=== PATIENT | male | born 1955 ===

== ENCOUNTER 2016-07-20 10:12 | Day surgery (SDC) | payer MEDICARE ==
[2016-07-20 11:04] VITALS: BMI 40.6
[2016-07-20] MEDS ORDERED: Ciprofloxacin 400mg/200ml D5W 200 ML IVPB ONE (12:08)
[2016-07-20] MEDS ORDERED: Iohexol 240 (50 ml) ONE (12:08)
[2016-07-20] MEDS ORDERED: Lactated Ringer's 1,000 ML IV ONE (12:10)
[2016-07-20] MEDS ORDERED: Midazolam 2 MG/2 ML VIAL ONE (12:16)
[2016-07-20] MEDS ORDERED: Propofol 10 mg/ml Inj (20 ML) ONE ×2 (12:16→12:30)
[2016-07-20] MEDS ORDERED: HYDROmorphone 0.5 mg/0.5 ml ISec IVP PRN (12:32)
[2016-07-20] MEDS ORDERED: Phenylephrine 10 mg/ml Inj ONE (12:46)
[2016-07-20 14:38] VITALS: RESP 15; TEMP 97.4; O2SAT 98
[2016-07-20] MEDS ORDERED: Oxycodone/Acetaminophen 5/325 mg Tab PO PRN (14:39)
[2016-07-20] MEDS ORDERED: Oxycodone/Acetaminophen 5/325 mg Tab ONE (14:42)
[2016-07-20 16:19] VITALS: BP 123/69; PULSE 72
--- NOTE | 2016-07-23 14:28 | RAD ---
HISTORY: HEMATURIA COMPARISON: 07/13/2016 FINDINGS: BOWEL: Normal. No obstruction. No free air. BONES: Normal. OTHER FINDINGS: Interval placement of a left ureteral stent. IMPRESSION: Interval placement of a left ureteral stent.
--- NOTE | 2016-07-24 20:22 | OP ---
PROCEDURE DATE: 07/20/2016 this dictation was done before, but it did not come through. POSTOPERATIVE DIAGNOSES: Gross hematuria, question tumor of the left ureter. POSTOPERATIVE DIAGNOSES: Organized hematoma and collection of blood in the left ureter. A tumor was not seen. PROCEDURE: Cystoureteroscopy and biopsy of the tissue present in the upper ureter. ANESTHESIA: General. DESCRIPTION OF THE PROCEDURE: While the patient was in the lithotomy position, genitalia were preppe d and draped in a sterile fashion. A #21 scope was inserted into the bladder. The bladder was inspe cted. No evidence of any active bleeding. There is mild irritation around the left orifice from the stent. The stent was removed. A wire was inserted and retrograde revealed no defect like the previ ous time, but it still showed some abnormality. Urethroscopy done after removing the scope, engaging into the left ureter going up the lower ureter normal where the defect was. There is multiple large clots organized adherent to the wall of the ureter. This was biopsied and removed and sent for cyto logy and analysis. Again retrograde revealed the calyceal system normal and the upper ureter had no defect. My plan is to keep him without any stenting. I will follow him and do a CT scan with dye to evaluate any abnormality in the ureter. The scope was removed. The patient tolerated the procedure well and was transferred in stable condition. Emmanuel Baldwin MD cc: 43 TT: 07/24/2016 20:22:17 donna
--- NOTE | 2016-07-26 16:30 | RAD ---
Fluoroscopy dated 07/20/2016. History: Hematuria. Multiple fluoroscopic images of the abdomen during cystoscopy performed. Correlation made with prior CT scan 06/02/2016 and prior abdominal ultrasound 07/13/2016. Study demonstrates retrograde opacification of the proximal left ureter and collecting system. There does appear to be blunting of the visualized the calices. Please refer to operative report for additional details. Impression: Fluoroscopic guided cystoscopy. Please refer to operative report for additional details
== END 2016-07-20 15:25 | disposition home or self-care (01) ==
LOC: C.SDS 10:12
PROVIDERS: ATTEND Specialist
DX: R31.0 Gross hematuria (principal); N40.0 Benign prostatic hyperplasia without lower urinary tract symptoms; I10 Essential (primary) hypertension
CPT/HCPCS: 52354; 74000; 82948; 88307; C1769; J0744; J7120; Q9966

== ENCOUNTER 2016-08-04 03:59 | Inpatient (IN) | payer MEDICARE, OTHER ==
[2016-08-04 04:00] VITALS: BMI 40.6
--- NOTE | 2016-08-04 04:15 | C.PDOC ---
History Of Present Illness Patient presents to the emergency room with complaints of persistent hematuria and intermittently passing clots for the last few days. Patient had a urinary stent taken out by Dr. Baldwin on 07/25. Patient denies any fever, chills, nausea , vomiting, diarrhea, or any other complaints. Time Seen by Provider: 08/04/16 04:14 Chief Complaint (Nursing): Male Genitourinary History Per: Patient History/Exam Limitations: no limitations Onset/Duration Of Symptoms: Days, Intermittent Episodes (Passing clots), Persistent (Hematuria) Current Symptoms Are (Timing): Still Present Severity: Mild Associated Symptoms: Urinary Symptoms. denies: Fever, Chills, Nausea, Vomiting , Diarrhea Alleviating Factors: None Recent travel outside of the [place]: No Past Medical History Reviewed: Historical Data, Nursing Documentation, Vital Signs Vital Signs: Last Vital Signs Temp 97.8 F 08/04/16 04:10 Pulse 81 08/04/16 04:10 Resp 14 08/04/16 04:10 BP 112/85 08/04/16 04:10 Pulse Ox 99 08/04/16 06:21 - Medical History PMH: Arthritis, CHF (2005), Colonic Polyps, Diabetes, HTN, Hypercholesterolemia , Kidney Stones (1998), Chronic Kidney Disease, Sleep Apnea (CPAP at home), TIA (7 years ago) Surgical History: Endoscopy - [facility] Procedures LT HEART ANGIOCARDIOGRAM (07/20/13) RT/LEFT HEART CARD CATH (07/20/13) Family History: States: Unknown Family Hx - Social History Hx Tobacco Use: No Hx Alcohol Use: No - Immunization History Hx Tetanus Toxoid Vaccination: No Hx Influenza Vaccination: No Hx Pneumococcal Vaccination: No Review Of Systems Constitutional: Negative for: Fever, Chills Gastrointestinal: Negative for: Nausea, Vomiting, Diarrhea Genitourinary: Positive for: Hematuria, Other (Passing clots) Physical Exam - Physical Exam Appears: Non-toxic Skin: Warm, Dry, No Rash Gastrointestinal/Abdominal: Bowel Sounds (Tympanic to percussion), Soft, No Tenderness, Distention, No Guarding, No Rebound Back: Other (Right flank pain) Extremity: Normal ROM, No Tenderness Neurological/Psych: Oriented x3, Normal Speech ED Course And Treatment - Laboratory Results Result Diagrams: 08/04/16 04:55 08/04/16 04:55 O2 Sat by Pulse Oximetry: 99 Pulse Ox Interpretation: Normal Reevaluation Time: 06:15 Reassessment Condition: Improved Disposition Discussed With Dr.: Ricarda Vaughan Comment: accepted the pt on her service and took over the care at 6:28AM Doctor Will See Patient In The: Hospital Counseled Patient/Family Regarding: Studies Performed, Diagnosis, Need For Followup, Rx Given - Disposition Referrals: Emmanuel Baldwin MD [Staff Provider] - Disposition: HOSPITALIZED Disposition Time: 04:15 Condition: FAIR Prescriptions: oxyCODONE/Acetaminophen [Percocet 5/325 mg Tab] 1 tab PO QID PRN #12 tab PRN Reason: Pain Ondansetron ODT [Zofran ODT] 1 odt PO BID PRN #6 odt PRN Reason: Nausea/Vomiting - POA Present On Arrival: Poor Glycemic Control - Clinical Impression Clinical Impression: Hematuria, Abdominal pain, Renal insufficiency - Scribe Statement The provider has reviewed the documentation as recorded by the Shaji Garza Provider Scribe Attestation: All medical record entries made by the Chanelleibjosefa were at my direction and personally dictated by me. I have reviewed the chart and agree that the record accurately reflects my personal performance of the history, physical exam, medical decision making, and the department course for this patient. I have also personally directed, reviewed, and agree with the discharge instructions and disposition. Decision To Admit - Pt Status Changed To: Hospital Disposition Of: Inpatient - Admit Certification Admit to Inpatient:: After my assessment, the patient will require hospitalization for at least two midnights. This is because of the severity of symptoms shown, intensity of services needed, and/or the medical risk in this patient being treated as an outpatient. - InPatient: Physician Admission Certification: I certify that this patient requires 2 or more midnights of care for the following reason:: After my assessment, the patient will require hospitalization for at least two midnights. This is because of the severity of symptoms shown, intensity of services needed, and/or the medical risk in this patient being treated as an outpatient. - . Bed Request Type: Regular Admitting Physician: Ricarda Vaughan Patient Diagnosis: Hematuria, Abdominal pain, Renal insufficiency
[2016-08-04] MEDS ORDERED: Morphine 4 MG/ML VIAL IV ONE (04:45)
[2016-08-04] MEDS ORDERED: Sodium Chloride 0.9% 1,000 ML IV ONE (04:45)
[2016-08-04 04:58] LABS: BASO # 0.1 K/uL (0.0-0.2); BASO % 0.6 % (0.0-2.0); EOS # 0.2 K/uL (0.0-0.7); EOS % 1.5 % (0.0-4.0); HEMATOCRIT 38.1 % (35.0-51.0); LYMPH % 10.3 % (20.0-40.0); MEAN CELL VOLUME 88.1 fL (80.0-94.0); MEAN CORPUSCULAR HEMOGLOBIN 29.4 pg (27.0-31.0); MEAN CORPUSCULAR HGB CONC 33.4 g/dL (33.0-37.0); MEAN PLATELET VOLUME 8.2 fL (7.2-11.7); MONO # 0.7 K/uL (0.0-0.8); MONO % 6.8 % (0.0-10.0); RED CELL DISTRIBUTION WIDTH 13.3 % (11.5-14.5); WHITE BLOOD COUNT 10.2 K/uL (4.8-10.8)
[2016-08-04] MEDS ORDERED: Morphine 4 MG/ML VIAL ONE (04:59)
[2016-08-04 05:21] LABS: RBC URINE 3653 /hpf (0-3); URINE BACTERIA RARE (<OCC); URINE BILIRUBIN NEGATIVE (NEGATIVE); URINE BLOOD 3+ (NEGATIVE); URINE COLOR Amber (YELLOW); URINE GLUCOSE (UA) NORMAL (Normal); URINE KETONE NEGATIVE (NEGATIVE); URINE LEUKOCYTE ESTERASE NEG Leu/uL (Negative); URINE PROTEIN 2+ mg/dL (NEGATIVE); URINE UROBILINOGEN NORMAL mg/dL (0.2-1.0); WBC URINE 4 /hpf (0-5)
[2016-08-04 05:26] LABS: POTASSIUM 4.7 mmol/L (3.6-5.2)
[2016-08-04 06:57] VITALS: RESP 20
[2016-08-04] MEDS ORDERED: Sodium Chloride 0.9% 1,000 ML IV SCH (08:00)
[2016-08-04] MEDS: Magnesium Hydroxide Susp 30 ml UD PO SCH (10:03)
[2016-08-04] MEDS: Sodium Chloride 0.9% 1,000 ML IV SCH (10:04)
[2016-08-04] MEDS: Albuterol-Ipratrop 3 mg / 0.5 (3 ml) UD INH SCH ×2 (13:45→19:33)
--- NOTE | 2016-08-04 15:59 | CP.PCM.CON ---
History of Present Illness - History of Present Illness History of Present Illness: CC: Hematuria HPI: 61 year old man with the following chronic medical conditions 1. Coronary artery disease - chronic and stable 2. HTN chronic and stable 3. Diasotlic CHF - chronic and stable Presents to [facility] with worsening hematuria. Review of Systems - Review of Systems All systems: reviewed and no additional remarkable complaints except Past Patient History - Past Medical History & Family History Past Medical History?: Yes - Past Social History Smoking Status: Never Smoked - CARDIAC Hx Congestive Heart Failure: Yes (2005) Hx Hypercholesterolemia: Yes Hx Hypertension: Yes - PULMONARY Hx Sleep Apnea: Yes (CPAP at home) - NEUROLOGICAL Hx Transient Ischemic Attacks (TIA): Yes (7 years ago) - HEENT Hx HEENT Problems: No - RENAL Hx Chronic Kidney Disease: Yes Hx Kidney Stones: Yes (1998) - ENDOCRINE/METABOLIC Hx Endocrine Disorders: Yes Hx Diabetes Mellitus Type 2: Yes - HEMATOLOGICAL/ONCOLOGICAL Hx Blood Disorders: No - INTEGUMENTARY Hx Dermatological Problems: No - MUSCULOSKELETAL/RHEUMATOLOGICAL Hx Arthritis: Yes Hx Falls: No - GASTROINTESTINAL Hx Gastrointestinal Disorders: Yes Hx Gastroesophageal Reflux: Yes - GENITOURINARY/GYNECOLOGICAL Hx Genitourinary Disorders: Yes Hx Hematuria: Yes - PSYCHIATRIC Hx Psychophysiologic Disorder: No Hx Substance Use: No - SURGICAL HISTORY Hx Surgeries: Yes Hx Arthroscopy: Yes (Right knee) Hx Cardiac Catheterization: Yes (2 yrs. ago) Other/Comment: Cyst removed from left hand 1981 - ANESTHESIA Hx Anesthesia: Yes Hx Anesthesia Reactions: Yes (DIFFICULT TO AROUSE NUMBNESS OF RIGHT SIDE BUT WAS DISCHARGED SAME DAY) Hx Malignant Hyperthermia: No Meds Home Medications: Home Medication List Medication Instructions Recorded Confirmed Type Ondansetron ODT [Zofran ODT] 1 odt PO BID PRN #6 odt 08/04/16 Rx oxyCODONE/Acetaminophen [Percocet 1 tab PO QID PRN #12 tab 08/04/16 Rx 5/325 mg Tab] Allergies/Adverse Reactions: Allergies Allergy/AdvReac Type Severity Reaction Status Date / Time ragweed pollen Allergy CONGESTION Verified 08/04/16 04:13 - Medications Medications: Current Medications Albuterol/Ipratropium (Duoneb 3 Mg/0.5 Mg (3 Ml) Ud) 3 ml INH RQ6 [facility] Last Admin: 08/04/16 13:45 Dose: 3 ml Amlodipine Besylate (Norvasc) 5 mg PO DAILY [facility] Last Admin: 08/04/16 10:03 Dose: 5 mg Sodium Chloride (Sodium Chloride 0.9%) 1,000 mls @ 50 mls/hr IV .Q20H [facility] Last Admin: 08/04/16 10:04 Dose: 50 mls/hr Losartan Potassium (Cozaar) 50 mg PO DAILY [facility] Last Admin: 08/04/16 10:03 Dose: 50 mg Magnesium Hydroxide (Milk Of Magnesia) 30 ml PO DAILY [facility] Last Admin: 08/04/16 10:03 Dose: 30 ml Morphine Sulfate (Morphine) 2 mg IVP Q6 PRN PRN Reason: Pain, moderate (4-7) Last Admin: 08/04/16 09:59 Dose: 2 mg Pantoprazole Sodium (Protonix Inj) 40 mg IVP DAILY [facility] Last Admin: 08/04/16 10:04 Dose: 40 mg Rosuvastatin Calcium (Crestor) 10 mg PO [facility] Physical Exam - Constitutional Appears: Well, Non-toxic - Head Exam Head Exam: ATRAUMATIC, NORMAL INSPECTION - Eye Exam Eye Exam: absent: Scleral icterus Pupil Exam: PERRL - ENT Exam ENT Exam: Mucous Membranes Moist, Normal Exam - Respiratory Exam Respiratory Exam: Clear to Auscultation Bilateral, NORMAL BREATHING PATTERN - Cardiovascular Exam Cardiovascular Exam: REGULAR RHYTHM, RRR, +S1, +S2, +S4. absent: JVD - GI/Abdominal Exam GI & Abdominal Exam: Normal Bowel Sounds. absent: Organomegaly - Neurological Exam Neurological exam: CN II-XII Intact, Oriented x3 - Psychiatric Exam Psychiatric exam: Normal Affect, Normal Mood Results - Vital Signs Recent Vital Signs: Last Vital Signs Temp 97.7 F 08/04/16 07:56 Pulse 71 08/04/16 13:48 Resp 20 08/04/16 13:10 BP 139/79 08/04/16 07:56 Pulse Ox 98 08/04/16 07:56 - Labs Result Diagrams: 08/05/16 07:01 08/05/16 07:01 Labs: Laboratory Results - last 24 hr 08/04/16 11:34 POC Glucose (mg/dL) 139 H Assessment & Plan - Assessment and Plan (Free Text) Assessment: 61 year old man well know to me Hematuria s/p cystoscopy and nephrolithiasis IVF and morphine HTN is chronic and stable CAD is chronic and stable on statin, he off anti platelets while issue is active dyslipidemia - chronic and stable on simvastatin He can follow up in my office in 2-4 weeks after his issue has stabilized.
--- NOTE | 2016-08-04 16:58 | CP.PCM.HP ---
History of Present Illness - History of Present Illness History of Present Illness: hematuria passing blood clots has abd pain Present on Admission - Present on Admission Any Indicators Present on Admission: No Review of Systems - Review of Systems Systems not reviewed;Unavailable: Acuity of Condition - Constitutional Constitutional: Daytime Sleepiness, Weakness - EENT Eyes: As Per HPI Ears: As Per HPI Nose/Mouth/Throat: As Per HPI - Cardiovascular Cardiovascular: Claudication, Dyspnea on Exertion - Respiratory Respiratory: Dyspnea on Exertion, Wheezing, Chest Congestion - Gastrointestinal Gastrointestinal: Bloating, Cramping - Genitourinary Genitourinary: Flank Pain, Hematuria - Reproductive: Male Reproductive:Male: As Per HPI - Musculoskeletal Musculoskeletal: As Per HPI - Integumentary Integumentary: As Per HPI - Neurological Neurological: As Per HPI - Psychiatric Psychiatric: As Per HPI - Endocrine Endocrine: As Per HPI - Hematologic/Lymphatic Hematologic: As Per HPI Past Patient History - Past Medical History & Family History Past Medical History?: Yes - Past Social History Smoking Status: Never Smoked - CARDIAC Hx Congestive Heart Failure: Yes (2005) Hx Hypercholesterolemia: Yes Hx Hypertension: Yes - PULMONARY Hx Sleep Apnea: Yes (CPAP at home) - NEUROLOGICAL Hx Transient Ischemic Attacks (TIA): Yes (7 years ago) - HEENT Hx HEENT Problems: No - RENAL Hx Chronic Kidney Disease: Yes Hx Kidney Stones: Yes (1998) - ENDOCRINE/METABOLIC Hx Endocrine Disorders: Yes Hx Diabetes Mellitus Type 2: Yes - HEMATOLOGICAL/ONCOLOGICAL Hx Blood Disorders: No - INTEGUMENTARY Hx Dermatological Problems: No - MUSCULOSKELETAL/RHEUMATOLOGICAL Hx Arthritis: Yes Hx Falls: No - GASTROINTESTINAL Hx Gastrointestinal Disorders: Yes Hx Gastroesophageal Reflux: Yes - GENITOURINARY/GYNECOLOGICAL Hx Genitourinary Disorders: Yes Hx Hematuria: Yes - PSYCHIATRIC Hx Psychophysiologic Disorder: No Hx Substance Use: No - SURGICAL HISTORY Hx Surgeries: Yes Hx Arthroscopy: Yes (Right knee) Hx Cardiac Catheterization: Yes (2 yrs. ago) Other/Comment: Cyst removed from left hand 1981 - ANESTHESIA Hx Anesthesia: Yes Hx Anesthesia Reactions: Yes (DIFFICULT TO AROUSE NUMBNESS OF RIGHT SIDE BUT WAS DISCHARGED SAME DAY) Hx Malignant Hyperthermia: No Meds Home Medications: Home Medication List Medication Instructions Recorded Confirmed Type Ondansetron ODT [Zofran ODT] 1 odt PO BID PRN #6 odt 08/04/16 Rx oxyCODONE/Acetaminophen [Percocet 1 tab PO QID PRN #12 tab 08/04/16 Rx 5/325 mg Tab] Allergies/Adverse Reactions: Allergies Allergy/AdvReac Type Severity Reaction Status Date / Time ragweed pollen Allergy CONGESTION Verified 08/04/16 04:13 Physical Exam - Constitutional Appears: Non-toxic, In Acute Distress - Head Exam Head Exam: NORMAL INSPECTION - Eye Exam Eye Exam: Normal appearance Pupil Exam: NORMAL ACCOMODATION - ENT Exam ENT Exam: Normal Exam - Neck Exam Neck exam: Positive for: Full Rom - Respiratory Exam Respiratory Exam: Decreased Breath Sounds - Cardiovascular Exam Cardiovascular Exam: REGULAR RHYTHM - GI/Abdominal Exam GI & Abdominal Exam: Tenderness - Rectal Exam Rectal Exam: NORMAL INSPECTION - Extremities Exam Extremities exam: Positive for: normal inspection - Back Exam Back exam: NORMAL INSPECTION - Neurological Exam Neurological exam: Oriented x3 - Psychiatric Exam Psychiatric exam: Flat Affect - Skin Skin Exam: Normal Color Results - Vital Signs Recent Vital Signs: Last Vital Signs Temp 97.7 F 08/04/16 07:56 Pulse 71 08/04/16 13:48 Resp 20 08/04/16 13:10 BP 139/79 08/04/16 07:56 Pulse Ox 98 08/04/16 07:56 - Labs Result Diagrams: 08/04/16 04:55 08/04/16 04:55 Labs: Laboratory Results - last 24 hr 08/04/16 11:34 POC Glucose (mg/dL) 139 H Assessment & Plan - Assessment and Plan (Free Text) Assessment: ac abdominal pain hematurea renal mass s/p cystoscopy Plan: mom urology cons ult pain managment - Date & Time Date: 08/04/16 Time: 17:03
[2016-08-04] MEDS ORDERED: Magnesium Hydroxide Susp 30 ml UD PO ONE (17:15)
[2016-08-05] MEDS: Albuterol-Ipratrop 3 mg / 0.5 (3 ml) UD INH SCH ×4 (01:05→19:26)
[2016-08-05] MEDS: Sodium Chloride 0.9% 1,000 ML IV SCH (05:40)
[2016-08-05 07:13] LABS: BASO % 0.7 % (0.0-2.0); EOS # 0.2 K/uL (0.0-0.7); EOS % 3.4 % (0.0-4.0); HEMATOCRIT 38.3 % (35.0-51.0); LYMPH # 1.1 K/uL (1.0-4.3); LYMPH % 15.8 % (20.0-40.0); MEAN CELL VOLUME 88.6 fL (80.0-94.0); MEAN CORPUSCULAR HEMOGLOBIN 29.4 pg (27.0-31.0); MEAN CORPUSCULAR HGB CONC 33.2 g/dL (33.0-37.0); MEAN PLATELET VOLUME 8.3 fL (7.2-11.7); MONO # 0.7 K/uL (0.0-0.8); RED CELL DISTRIBUTION WIDTH 13.9 % (11.5-14.5); WHITE BLOOD COUNT 7.1 K/uL (4.8-10.8)
[2016-08-05 07:26] LABS: INR 1.1
[2016-08-05 07:28] LABS: POTASSIUM 4.4 mmol/L (3.6-5.2)
[2016-08-05 07:30] LABS: ALB/GLOB RATIO 1.1 (1.0-2.1); BILIRUBIN,TOTAL 0.7 mg/dL (0.2-1.3); TOTAL PROTEIN 7.1 g/dL (6.3-8.3)
[2016-08-05] MEDS: Magnesium Hydroxide Susp 30 ml UD PO SCH (10:52)
--- NOTE | 2016-08-05 11:08 | CP.PCM.PN ---
Subjective - Date & Time of Evaluation Date of Evaluation: 08/05/16 Time of Evaluation: 11:05 - Subjective Subjective: less abd pain still passing blood clots pain and redness aknle maleolus Objective - Vital Signs/Intake and Output Vital Signs (last 24 hours): Temp Pulse Resp BP Pulse Ox 98.9 F 74 20 96/54 L 98 08/05/16 08:00 08/05/16 08:00 08/05/16 08:00 08/05/16 08:00 08/05/16 08:00 Intake and Output: 08/05/16 08/05/16 06:59 18:59 Intake Total 1440 Balance 1440 - Medications Medications: Current Medications Albuterol/Ipratropium (Duoneb 3 Mg/0.5 Mg (3 Ml) Ud) 3 ml INH RQ6 [facility] Last Admin: 08/05/16 08:07 Dose: 3 ml Amlodipine Besylate (Norvasc) 5 mg PO DAILY [facility] Last Admin: 08/05/16 10:52 Dose: 5 mg Sodium Chloride (Sodium Chloride 0.9%) 1,000 mls @ 50 mls/hr IV .Q20H [facility] Last Admin: 08/05/16 05:40 Dose: 50 mls/hr Losartan Potassium (Cozaar) 50 mg PO DAILY [facility] Last Admin: 08/05/16 10:52 Dose: 50 mg Magnesium Hydroxide (Milk Of Magnesia) 30 ml PO DAILY [facility] Last Admin: 08/05/16 10:52 Dose: 30 ml Morphine Sulfate (Morphine) 2 mg IVP Q6 PRN PRN Reason: Pain, moderate (4-7) Last Admin: 08/04/16 22:41 Dose: 2 mg Pantoprazole Sodium (Protonix Inj) 40 mg IVP DAILY [facility] Last Admin: 08/05/16 10:52 Dose: 40 mg Rosuvastatin Calcium (Crestor) 10 mg PO HS [facility] Last Admin: 08/04/16 21:41 Dose: 10 mg - Labs Labs: 08/05/16 07:01 08/05/16 07:01 PT 12.9 SECONDS (9.7-12.2) H 08/05/16 07:01 INR 1.1 08/05/16 07:01 - Constitutional Appears: Non-toxic - Head Exam Head Exam: NORMAL INSPECTION - Eye Exam Eye Exam: Normal appearance Pupil Exam: NORMAL ACCOMODATION - ENT Exam ENT Exam: Normal Exam - Neck Exam Neck Exam: Normal Inspection - Respiratory Exam Respiratory Exam: Decreased Breath Sounds - Cardiovascular Exam Cardiovascular Exam: REGULAR RHYTHM - GI/Abdominal Exam GI & Abdominal Exam: Tenderness, Normal Bowel Sounds - Rectal Exam Rectal Exam: NORMAL INSPECTION - Exam Exam: NORMAL INSPECTION - Extremities Exam Extremities Exam: Normal Inspection - Back Exam Back Exam: NORMAL INSPECTION - Neurological Exam Neurological Exam: Oriented x3 - Psychiatric Exam Psychiatric exam: Normal Affect - Skin Skin Exam: Normal Color, Rash Assessment and Plan - Assessment and Plan (Free Text) Assessment: kidney tumer hematuria persistant ac ankle pain and celulitis Plan: as per orders
[2016-08-06] MEDS: Sodium Chloride 0.9% 1,000 ML IV SCH ×2 (00:33→22:35)
[2016-08-06] MEDS: Albuterol-Ipratrop 3 mg / 0.5 (3 ml) UD INH SCH ×3 (08:18→19:44)
[2016-08-06] MEDS: Magnesium Hydroxide Susp 30 ml UD PO SCH (09:31)
[2016-08-06] MEDS ORDERED: Bisacodyl 5mg EC Tab PO ONE (12:09)
--- NOTE | 2016-08-06 16:56 | CP.PCM.PN ---
Subjective - Date & Time of Evaluation Date of Evaluation: 08/06/16 Time of Evaluation: 16:53 - Subjective Subjective: less urinary bleeding less abd pain r i Objective - Vital Signs/Intake and Output Vital Signs (last 24 hours): Temp Pulse Resp BP Pulse Ox 98.1 F 77 20 145/78 97 08/06/16 00:00 08/06/16 08:00 08/06/16 00:00 08/06/16 00:00 08/06/16 00:00 Intake and Output: 08/06/16 08/06/16 06:59 18:59 Intake Total 800 850 Balance 800 850 - Medications Medications: Current Medications Albuterol/Ipratropium (Duoneb 3 Mg/0.5 Mg (3 Ml) Ud) 3 ml INH RQ6 [facility] Last Admin: 08/06/16 14:21 Dose: 3 ml Amlodipine Besylate (Norvasc) 5 mg PO DAILY [facility] Last Admin: 08/06/16 09:30 Dose: 5 mg Sodium Chloride (Sodium Chloride 0.9%) 1,000 mls @ 50 mls/hr IV .Q20H [facility] Last Admin: 08/06/16 00:33 Dose: 50 mls/hr Losartan Potassium (Cozaar) 50 mg PO DAILY [facility] Last Admin: 08/06/16 09:30 Dose: 50 mg Magnesium Hydroxide (Milk Of Magnesia) 30 ml PO DAILY [facility] Last Admin: 08/06/16 09:31 Dose: Not Given Morphine Sulfate (Morphine) 2 mg IVP Q6 PRN PRN Reason: Pain, moderate (4-7) Last Admin: 08/04/16 22:41 Dose: 2 mg Pantoprazole Sodium (Protonix Inj) 40 mg IVP DAILY [facility] Last Admin: 08/06/16 09:30 Dose: 40 mg Pneumococcal Polyvalent Vaccine (Pneumovax 23 Vaccine) 0.5 ml IM .ONCE ONE Stop: 08/07/16 10:01 Rosuvastatin Calcium (Crestor) 10 mg PO HS [facility] Last Admin: 08/05/16 22:00 Dose: 10 mg - Labs Labs: 08/05/16 07:01 08/05/16 07:01 PT 12.9 SECONDS (9.7-12.2) H 08/05/16 07:01 INR 1.1 08/05/16 07:01 - Constitutional Appears: No Acute Distress - Head Exam Head Exam: NORMAL INSPECTION - Eye Exam Eye Exam: Normal appearance Pupil Exam: NORMAL ACCOMODATION - ENT Exam ENT Exam: Mucous Membranes Moist - Neck Exam Neck Exam: Normal Inspection - Respiratory Exam Respiratory Exam: NORMAL BREATHING PATTERN - Cardiovascular Exam Cardiovascular Exam: REGULAR RHYTHM - GI/Abdominal Exam GI & Abdominal Exam: Hyperactive Bowel Sounds - Rectal Exam Rectal Exam: NORMAL INSPECTION - Exam Exam: NORMAL INSPECTION - Extremities Exam Extremities Exam: Normal Inspection - Back Exam Back Exam: NORMAL INSPECTION - Neurological Exam Neurological Exam: Oriented x3 - Psychiatric Exam Psychiatric exam: Normal Affect - Skin Skin Exam: Normal Color Assessment and Plan - Assessment and Plan (Free Text) Assessment: heaturia sec to leasion ureter discused with dr gilmore need mri with contrast has creatini hi will cont iv fluids and repeate lab in am Plan: as per orders
[2016-08-07] MEDS: Albuterol-Ipratrop 3 mg / 0.5 (3 ml) UD INH SCH ×5 (02:07→19:37)
[2016-08-07 07:19] LABS: POTASSIUM 4.7 mmol/L (3.6-5.2)
[2016-08-07 07:21] LABS: BILIRUBIN,TOTAL 0.6 mg/dL (0.2-1.3)
[2016-08-07 07:22] LABS: ALB/GLOB RATIO 1.1 (1.0-2.1); CALCIUM 9.2 mg/dl (8.6-10.4); TOTAL PROTEIN 7.6 g/dL (6.3-8.3)
[2016-08-07] MEDS ORDERED: Sodium Chloride 0.45% 500ml 500 ML SOL IV ONE (10:00)
[2016-08-07] MEDS ORDERED: Pneumococcal 23-Valent Vaccine IM ONE (10:00)
--- NOTE | 2016-08-07 10:00 | CP.PCM.PN ---
Subjective - Date & Time of Evaluation Date of Evaluation: 08/07/16 Time of Evaluation: 09:57 - Subjective Subjective: feels beter no pain creatinin improved urin more cleare Objective - Vital Signs/Intake and Output Vital Signs (last 24 hours): Temp Pulse Resp BP Pulse Ox 98.3 F 92 H 20 148/85 97 08/07/16 07:00 08/07/16 07:00 08/07/16 07:00 08/07/16 07:00 08/07/16 07:00 Intake and Output: 08/07/16 08/07/16 06:59 18:59 Intake Total 1350 Output Total 900 Balance 450 - Medications Medications: Current Medications Albuterol/Ipratropium (Duoneb 3 Mg/0.5 Mg (3 Ml) Ud) 3 ml INH RQ6 [facility] Last Admin: 08/07/16 08:13 Dose: 3 ml Amlodipine Besylate (Norvasc) 5 mg PO DAILY [facility] Last Admin: 08/06/16 09:30 Dose: 5 mg Sodium Chloride (Sodium Chloride 0.9%) 1,000 mls @ 50 mls/hr IV .Q20H [facility] Last Admin: 08/06/16 22:35 Dose: 50 mls/hr Losartan Potassium (Cozaar) 50 mg PO DAILY [facility] Last Admin: 08/06/16 09:30 Dose: 50 mg Magnesium Hydroxide (Milk Of Magnesia) 30 ml PO DAILY [facility] Last Admin: 08/06/16 09:31 Dose: Not Given Morphine Sulfate (Morphine) 2 mg IVP Q6 PRN PRN Reason: Pain, moderate (4-7) Last Admin: 08/04/16 22:41 Dose: 2 mg Pantoprazole Sodium (Protonix Inj) 40 mg IVP DAILY [facility] Last Admin: 08/06/16 09:30 Dose: 40 mg Pneumococcal Polyvalent Vaccine (Pneumovax 23 Vaccine) 0.5 ml IM .ONCE ONE Stop: 08/07/16 10:01 Rosuvastatin Calcium (Crestor) 10 mg PO HS [facility] Last Admin: 08/06/16 21:11 Dose: 10 mg Sodium Chloride (Sodium Chloride 0.45%) 500 ml IV STAT ONE Stop: 08/07/16 10:01 - Labs Labs: 08/05/16 07:01 08/07/16 07:00 PT 12.9 SECONDS (9.7-12.2) H 08/05/16 07:01 INR 1.1 08/05/16 07:01 - Constitutional Appears: Non-toxic - Head Exam Head Exam: NORMAL INSPECTION - Eye Exam Eye Exam: Normal appearance Pupil Exam: NORMAL ACCOMODATION - Back Exam Back Exam: NORMAL INSPECTION - Neurological Exam Neurological Exam: Normal Gait, Oriented x3 - Psychiatric Exam Psychiatric exam: Normal Affect - Skin Skin Exam: Normal Color Assessment and Plan - Assessment and Plan (Free Text) Assessment: urtral tumer kidney mass hematuria Plan: cont iv ct
[2016-08-07] MEDS: Magnesium Hydroxide Susp 30 ml UD PO SCH (10:58)
[2016-08-07] MEDS ORDERED: Iodixanol 320 MG/ML 100 ML BOTTLE IV ONE (12:33)
[2016-08-07] MEDS: Sodium Chloride 0.9% 1,000 ML IV SCH ×2 (16:15→20:20)
--- NOTE | 2016-08-07 16:35 | CT ---
PROCEDURE: CT Chest, Abdomen and Pelvis with intravenous contrast HISTORY: uretral tumer COMPARISON: Comparison is made to the previous study dated 08/03/2016 and study dated 05/23/2015 TECHNIQUE: Axial and reformatted coronal and sagittal CT images of the chest abdomen and pelvis were obtained before and after IV contrast administration. IV dose administered: 50 mL of Visipaque 320 Radiation dose: Total exam DLP = 4273. 7 mGy-cm. This CT exam was performed using one or more of the following dose reduction techniques: Automated exposure control, adjustment of the mA and/or kV according to patient size, and/or use of iterative reconstruction technique. FINDINGS: CT CHEST WITH CONTRAST: LUNGS: There is 5 millimeter nodule at the right lung upper lobe. There are small reticulonodular opacities at the peripheral portion of the right middle and lower lobe of uncertain etiology. Findings could be due to mild infection or inflammatory process. Otherwise MEDIASTINUM: Unremarkable. Normal caliber aorta and pulmonary arterial trunk. No aortic dissection. Normal size heart. LYMPH NODES: Unremarkable. PLEURA: Unremarkable. No pneumothorax. No pleural fluid. BONES: Unremarkable. OTHER FINDINGS: None. CT ABDOMEN AND PELVIS: LIVER: Unremarkable. No gross lesion or ductal dilatation. GALLBLADDER AND BILE DUCTS: Unremarkable. PANCREAS: Unremarkable. No gross lesion or ductal dilatation. SPLEEN: Unremarkable. ADRENALS: Unremarkable. No mass. KIDNEYS AND URETERS: The left kidney at these larger than the right. There is filling defect seen at the left kidney lower pole collecting system. There is also enhancing nodule at the midpole collecting system/ renal pelvis. There is moderate wall thickening of the collecting system and proximal ureter of the left kidney. The collecting system of the lower pole of the left kidney is not well visualized. The calyces in the upper pole of the left kidney appear intact and normal shape. No evidence of right renal calculi or hydronephrosis. There is a calcified wall lesion at the mid to lower pole right kidney measures 3 centimeter. The distal portion of both ureters are not dilated. Moderate left perinephric stranding is again noted. VASCULATURE: Unremarkable. No aortic aneurysm. BOWEL: Unremarkable. No obstruction. No gross mural thickening. APPENDIX: Normal appendix. PERITONEUM: Unremarkable. No free fluid. No free air. LYMPH NODES: Unremarkable. No enlarged lymph nodes. BLADDER: [id number] urinary bladder wall thickening is noted. REPRODUCTIVE: The prostate is mildly enlarged. BONES: No acute fracture. OTHER FINDINGS: None. IMPRESSION: The collecting system/ calyces of the left kidney lower pole is not visualized. The calyces of the left kidney upper pole are normal in shape. Suspicious for mass lesion in the collecting system of the left kidney lower pole. Suspicious for enhancing soft tissue nodule at the left renal pelvis. Moderate wall thickening of the left renal pelvis and proximal left ureter. The left kidney is larger than the right. Moderate left perinephric stranding seen. Mildly enlarged lymph nodes adjacent to the left kidney and in the left para-aortic region. 5 millimeter nodule at the right lung upper lobe. Nonspecific small reticular nodular opacities at the peripheral right mid to lower lobe may be due to mild infectious process. Stable calcified wall cystic lesion at the midpole right kidney since the previous study dated 05/23/2015.
[2016-08-08] MEDS: Albuterol-Ipratrop 3 mg / 0.5 (3 ml) UD INH SCH ×4 (02:23→20:29)
[2016-08-08 06:03] LABS: BASO # 0.1 K/uL (0.0-0.2); BASO % 0.6 % (0.0-2.0); EOS # 0.3 K/uL (0.0-0.7); EOS % 3.6 % (0.0-4.0); HEMATOCRIT 38.9 % (35.0-51.0); LYMPH # 1.1 K/uL (1.0-4.3); LYMPH % 12.4 % (20.0-40.0); MEAN CELL VOLUME 88.4 fL (80.0-94.0); MEAN CORPUSCULAR HEMOGLOBIN 29.4 pg (27.0-31.0); MEAN CORPUSCULAR HGB CONC 33.3 g/dL (33.0-37.0); MEAN PLATELET VOLUME 8.2 fL (7.2-11.7); MONO # 0.9 K/uL (0.0-0.8); MONO % 10.2 % (0.0-10.0); RED CELL DISTRIBUTION WIDTH 13.4 % (11.5-14.5); WHITE BLOOD COUNT 8.5 K/uL (4.8-10.8)
[2016-08-08 06:14] LABS: POTASSIUM 4.8 mmol/L (3.6-5.2)
[2016-08-08 06:18] LABS: CALCIUM 8.7 mg/dl (8.6-10.4)
[2016-08-08] MEDS: Magnesium Hydroxide Susp 30 ml UD PO SCH (10:20)
[2016-08-08] MEDS ORDERED: Naproxen 550 mg Tab PO PRN (11:15)
[2016-08-08] MEDS ORDERED: MethylPREDNISolone Depo 40 mg/ml Inj IM ONE (11:42)
[2016-08-08] MEDS ORDERED: Bupivacaine HCl 0.5% PF (30 ml) Inj IJ ONE (11:43)
[2016-08-08] MEDS: Sodium Chloride 0.9% 1,000 ML IV SCH ×2 (13:42→21:23)
--- NOTE | 2016-08-08 14:02 | CP.PCM.PN ---
Subjective - Date & Time of Evaluation Date of Evaluation: 08/08/16 Time of Evaluation: 14:00 - Subjective Subjective: pain sewling ankle seen by dr saavedra had injection Objective - Vital Signs/Intake and Output Vital Signs (last 24 hours): Temp Pulse Resp BP Pulse Ox 97.7 F 90 20 147/90 99 08/08/16 08:15 08/08/16 08:41 08/08/16 08:15 08/08/16 08:15 08/08/16 08:15 Intake and Output: 08/08/16 08/08/16 06:59 18:59 Intake Total 640 500 Output Total 500 Balance 640 0 - Medications Medications: Current Medications Albuterol/Ipratropium (Duoneb 3 Mg/0.5 Mg (3 Ml) Ud) 3 ml INH RQ6 [facility] Last Admin: 08/08/16 13:25 Dose: 3 ml Amlodipine Besylate (Norvasc) 5 mg PO DAILY [facility] Last Admin: 08/08/16 10:19 Dose: 5 mg Sodium Chloride (Sodium Chloride 0.9%) 1,000 mls @ 50 mls/hr IV .Q20H [facility] Last Admin: 08/08/16 13:42 Dose: 50 mls/hr Losartan Potassium (Cozaar) 50 mg PO DAILY [facility] Last Admin: 08/08/16 10:19 Dose: 50 mg Magnesium Hydroxide (Milk Of Magnesia) 30 ml PO DAILY [facility] Last Admin: 08/08/16 10:20 Dose: Not Given Morphine Sulfate (Morphine) 2 mg IVP Q6 PRN PRN Reason: Pain, moderate (4-7) Last Admin: 08/08/16 03:36 Dose: 2 mg Pantoprazole Sodium (Protonix Inj) 40 mg IVP DAILY [facility] Last Admin: 08/08/16 10:20 Dose: 40 mg Rosuvastatin Calcium (Crestor) 10 mg PO HS [facility] Last Admin: 08/07/16 22:00 Dose: 10 mg - Labs Labs: 08/08/16 05:53 08/08/16 05:53 PT 12.9 SECONDS (9.7-12.2) H 08/05/16 07:01 INR 1.1 08/05/16 07:01 - Constitutional Appears: Non-toxic - Head Exam Head Exam: NORMAL INSPECTION - Eye Exam Eye Exam: Periorbital tenderness Pupil Exam: NORMAL ACCOMODATION - ENT Exam ENT Exam: Mucous Membranes Moist - Neck Exam Neck Exam: Normal Inspection - Respiratory Exam Respiratory Exam: Clear to Ausculation Bilateral - Cardiovascular Exam Cardiovascular Exam: REGULAR RHYTHM - GI/Abdominal Exam GI & Abdominal Exam: Normal Bowel Sounds - Rectal Exam Rectal Exam: NORMAL INSPECTION - Exam Exam: NORMAL INSPECTION External exam: NORMAL EXTERNAL EXAM - Extremities Exam Extremities Exam: Normal Inspection - Back Exam Back Exam: NORMAL INSPECTION - Neurological Exam Neurological Exam: Normal Gait - Psychiatric Exam Psychiatric exam: Normal Mood Assessment and Plan - Assessment and Plan (Free Text) Assessment: mass in kidney will have bx tomoro Plan: npo after mid night
[2016-08-08] MEDS: Oxycodone/Acetaminophen 5/325 mg Tab PO PRN ×2 (15:06→20:14)
--- NOTE | 2016-08-08 15:28 | CON ---
DATE: 08/06/2016 The patient is a 61-year-old, presents with bleeding or passing clots, lower abdominal pain. The pat ient was admitted by Dr. Vaughan. Has previous bleeding from the left kidney and ureteroscopy reveal ed clots in the upper ureter, but tumor could not be seen. Recently, a repeat CAT scan revealed thic kening of the wall of the upper ureter, extending to the pelvis. PHYSICAL EXAMINATION: Revealed: ABDOMEN: Soft. No flank tenderness. No kidney palpable. No suprapubic fullness or tenderness. GENITOURINARY: The patient passing clear urine, but every once in a while, he passes a clot. IMPRESSION: Bleeding due to possible tumor of the left kidney. RECOMMEND: Do MRI with and without contrast and I will follow him. Emmanuel Baldwin MD cc: 43 TT: 08/08/2016 15:28:08 Confirmation # [id number] Dictation # [id number] en
--- NOTE | 2016-08-08 15:30 | CON ---
DATE: 08/08/2016 Passing urine, clear, no clots, but every once in a while, he passed small clots. Yesterday, they co uld not do MRI of the kidney because he did not fit the machine and the patient is not severely obese . CT scan done with contrast and delayed film taken, which showed the upper rebecca filling. The lowe r rebecca is not filling on the left side and I reviewed the film with the radiologist. There is possi bility of tumor of the lower infundibulum, extending to the renal pelvis. PLAN: I discussed it with the patient and I talked to Dr. Vaughan. I will do a cystoscopy in the mo rning with ureteroscopy flexible, going to that left lower rebecca. Emmanuel Baldwin MD cc: 43 TT: 08/08/2016 15:29:53 Confirmation # [id number] Dictation # [id number] en
[2016-08-09] MEDS: Albuterol-Ipratrop 3 mg / 0.5 (3 ml) UD INH SCH ×4 (02:07→21:00)
--- NOTE | 2016-08-09 07:12 | CON ---
DATE: 08/08/2016 REQUESTING PHYSICIAN: Dr. Ricarda Vaughan. The patient is a 61-year-old male, alert and orientated x 3, seen at bedside. PHYSICAL EXAMINATION: Upon examination, we see a left ankle distended and very warm. No signs of si nus tracts or evidence of infectious process. Pulses are palpable on both lower extremities. He does have a history of gout and clinically this is mimicking an acute gouty attack on the left ank le. At this time, arthrocentesis and infusion of 0.5% Marcaine and 40 mg Decadron into the left ankle lat eral malleolar region was accomplished without incident. Two Wolfgang bandages were placed around the lef t ankle for control of swelling. Another injection could be considered at a later time. The patient going for cystoscopy this afterno on and hopefully the injection therapy that was instituted will help remedy this painful clinical set ting. Cornell Torres DPM cc: [id number] TT: 08/08/2016 12:40:34 Confirmation # [id number] Dictation # [id number] mn 08/09/2016 06:11:01
[2016-08-09] MEDS ORDERED: Midazolam 2 MG/2 ML VIAL ONE (07:49)
[2016-08-09] MEDS ORDERED: Propofol 10 mg/ml Inj (20 ML) ONE (07:49)
[2016-08-09] MEDS ORDERED: Iohexol 240 (50 ml) ONE (07:54)
[2016-08-09] MEDS ORDERED: Lidocaine 2% Jelly (Uro-Jet) ONE (07:54)
[2016-08-09] MEDS ORDERED: cefTRIAXone IV 1 gm in Dextros 50 ML IVPB ONE (07:54)
[2016-08-09] MEDS ORDERED: Sodium Chloride 0.9% 500 ML IV ONE (07:55)
[2016-08-09] MEDS ORDERED: Lactated Ringer's 1,000 ML IV ONE (07:55)
[2016-08-09] MEDS ORDERED: HYDROmorphone 0.5 mg/0.5 ml ISec IVP PRN (08:51)
[2016-08-09] MEDS: Sodium Chloride 0.9% 1,000 ML IV SCH ×2 (11:10→21:50)
[2016-08-09] MEDS: Magnesium Hydroxide Susp 30 ml UD PO SCH (11:11)
--- NOTE | 2016-08-09 15:35 | RAD ---
PROCEDURE: Left retrograde/ stent insertion. HISTORY: HEMATURIA/LT KIDNEY CA COMPARISON: None TECHNIQUE: Standard protocol for this study/examination. FINDINGS: Total fluoroscopic time (continuous mode) utilized during the procedure: 307 seconds. IMPRESSION: Less than 1 hr fluoroscopic time utilized during performance of the procedure.
[2016-08-09] MEDS: Oxycodone/Acetaminophen 5/325 mg Tab PO PRN (15:50)
--- NOTE | 2016-08-09 19:46 | CP.PCM.PN ---
Subjective - Date & Time of Evaluation Date of Evaluation: 08/09/16 Time of Evaluation: 19:44 - Subjective Subjective: HAD PROCEDURE TODAY HAVING MORE HEMATURIA NOW Objective - Vital Signs/Intake and Output Vital Signs (last 24 hours): Temp Pulse Resp BP Pulse Ox 97.9 F 80 20 144/81 98 08/09/16 15:10 08/09/16 15:10 08/09/16 15:10 08/09/16 15:10 08/09/16 15:10 - Medications Medications: Current Medications Acetaminophen (Tylenol 325mg Tab) 650 mg PO Q6 PRN PRN Reason: Pain, severe (8-10) Last Admin: 08/09/16 11:08 Dose: 650 mg Albuterol/Ipratropium (Duoneb 3 Mg/0.5 Mg (3 Ml) Ud) 3 ml INH RQ6 [facility] Last Admin: 08/09/16 13:29 Dose: 3 ml Amlodipine Besylate (Norvasc) 5 mg PO DAILY [facility] Last Admin: 08/09/16 11:11 Dose: 5 mg Sodium Chloride (Sodium Chloride 0.9%) 1,000 mls @ 50 mls/hr IV .Q20H [facility] Last Admin: 08/09/16 11:10 Dose: 50 mls/hr Losartan Potassium (Cozaar) 50 mg PO DAILY [facility] Last Admin: 08/09/16 11:12 Dose: 50 mg Magnesium Hydroxide (Milk Of Magnesia) 30 ml PO DAILY [facility] Last Admin: 08/09/16 11:11 Dose: Not Given Morphine Sulfate (Morphine) 2 mg IVP Q6 PRN PRN Reason: Pain, moderate (4-7) Last Admin: 08/08/16 03:36 Dose: 2 mg Oxycodone/Acetaminophen (Percocet 5/325 Mg Tab) 1 tab PO Q6H PRN PRN Reason: Pain, Mild (1-3) Stop: 08/11/16 14:05 Last Admin: 08/09/16 15:50 Dose: 1 tab Pantoprazole Sodium (Protonix Inj) 40 mg IVP DAILY [facility] Last Admin: 08/09/16 11:10 Dose: 40 mg Rosuvastatin Calcium (Crestor) 10 mg PO HS [facility] Last Admin: 08/08/16 21:24 Dose: 10 mg - Labs Labs: 08/08/16 05:53 08/08/16 05:53 PT 12.9 SECONDS (9.7-12.2) H 08/05/16 07:01 INR 1.1 08/05/16 07:01 - Constitutional Appears: Non-toxic - Eye Exam Eye Exam: Normal appearance Pupil Exam: NORMAL ACCOMODATION - ENT Exam ENT Exam: Normal Exam - Neck Exam Neck Exam: Normal Inspection - Respiratory Exam Respiratory Exam: NORMAL BREATHING PATTERN - Cardiovascular Exam Cardiovascular Exam: REGULAR RHYTHM - GI/Abdominal Exam GI & Abdominal Exam: Normal Bowel Sounds - Exam Exam: NORMAL INSPECTION Assessment and Plan - Assessment and Plan (Free Text) Assessment: HEMATURIA KIDNEY TUMER Plan: IV FLUIDS
[2016-08-10] MEDS: Albuterol-Ipratrop 3 mg / 0.5 (3 ml) UD INH SCH ×3 (01:04→14:04)
[2016-08-10 07:22] LABS: HEMATOCRIT 34.7 % (35.0-51.0); MEAN CELL VOLUME 89.1 fL (80.0-94.0); MEAN CORPUSCULAR HEMOGLOBIN 29.8 pg (27.0-31.0); MEAN CORPUSCULAR HGB CONC 33.5 g/dL (33.0-37.0); MEAN PLATELET VOLUME 8.3 fL (7.2-11.7); RED CELL DISTRIBUTION WIDTH 13.3 % (11.5-14.5); WHITE BLOOD COUNT 7.8 K/uL (4.8-10.8)
[2016-08-10 07:31] LABS: POTASSIUM 4.7 mmol/L (3.6-5.2)
[2016-08-10 07:35] LABS: CALCIUM 8.7 mg/dl (8.6-10.4)
--- NOTE | 2016-08-10 07:45 | OP ---
PROCEDURE DATE: 08/09/2016 PREOPERATIVE DIAGNOSIS: Possible tumor of the lower rebecca of the left kidney, extending to the pelvi s. PROCEDURE: Cystoscopy, ureteroscopy using flexible scope, multiple biopsies from the lower rebecca and renal pelvis, and cytology collection, insertion of stent 8-Sri Lankan. DESCRIPTION OF THE PROCEDURE: While the patient is in lithotomy position, genitalia prepped and drap ed in sterile fashion. Cysto revealed bladder normal. No tumor and no stone. Mild redness on the l eft orifice. A sensor wire inserted. A second sensor wire inserted. The scope removed. Flexible u reteroscope passed over one of the wires, up to the renal pelvis. Retrograde was done which revealed obliteration and obstruction of the lower rebecca. After a few attempts, the scope bent and I could s ee abnormal tissue in the mouth of the lower rebecca. Granulation was hypervascular. Multiple biopsie s taken. It was small pieces taken and sent to pathology. At the same time, after removing the scop e, open end inserted, collection cytology and sent for pathology from the left kidney. The sensor wi re inserted and an 8-Sri Lankan multilength inserted and positioned between the kidney and the bladder. The patient tolerated the procedure well and urine was pinkish and he transferred in stable condition to the recovery room. Emmanuel Baldwin MD cc: 43 TT: 08/09/2016 10:26:41 kacy
[2016-08-10] MEDS: Magnesium Hydroxide Susp 30 ml UD PO SCH (09:29)
[2016-08-10] MEDS: Oxycodone/Acetaminophen 5/325 mg Tab PO PRN ×2 (09:30)
[2016-08-10 09:58] VITALS: BP 137/76; PULSE 87; TEMP 98; O2SAT 97
--- NOTE | 2016-08-10 11:01 | CP.PCM.DIS ---
Provider - Provider Date of Admission: 08/04/16 06:30 Attending physician: Ricarda Vaughan MD Primary care physician: pt came in with abd pain nausea and hematuria was seen by urology dr gray had cystoscopy with retrograg then was found to have kidney tumer went again for procedure try to get bx frim the tumer result pending pt had pain and swllind maleolas seen by dr saavedra pastry baker had injection hehas bs monterded for dm and had i v fluids for nael;l fiaiure will d/d pt today f/u in my office next weeke cont as per rx given Time Spent in preparation of Discharge (in minutes): 35 Hospital Course - Lab Results Lab Results: Micro Results 08/04/16 Unknown Urine,Clean Catch Urine Culture - Final No Growth (<1,000 CFU/ML) Most Recent Lab Values WBC 7.8 K/uL (4.8-10.8) 08/10/16 07:01 RBC 3.89 Mil/uL (4.40-5.90) L 08/10/16 07:01 Hgb 11.6 g/dL (12.0-18.0) L 08/10/16 07:01 Hct 34.7 % (35.0-51.0) L 08/10/16 07:01 MCV 89.1 fL (80.0-94.0) 08/10/16 07:01 MCH 29.8 pg (27.0-31.0) 08/10/16 07:01 MCHC 33.5 g/dL (33.0-37.0) 08/10/16 07:01 RDW 13.3 % (11.5-14.5) 08/10/16 07:01 Plt Count 187 K/uL (130-400) 08/10/16 07:01 MPV 8.3 fL (7.2-11.7) 08/10/16 07:01 Neut % (Auto) 73.2 % (50.0-75.0) 08/08/16 05:53 Lymph % (Auto) 12.4 % (20.0-40.0) L 08/08/16 05:53 Blackford % (Auto) 10.2 % (0.0-10.0) H 08/08/16 05:53 Eos % (Auto) 3.6 % (0.0-4.0) 08/08/16 05:53 Baso % (Auto) 0.6 % (0.0-2.0) 08/08/16 05:53 Neut # 6.2 K/uL (1.8-7.0) 08/08/16 05:53 Lymph # 1.1 K/uL (1.0-4.3) 08/08/16 05:53 Blackford # 0.9 K/uL (0.0-0.8) H 08/08/16 05:53 Eos # 0.3 K/uL (0.0-0.7) 08/08/16 05:53 Baso # 0.1 K/uL (0.0-0.2) 08/08/16 05:53 PT 12.9 SECONDS (9.7-12.2) H 08/05/16 07:01 INR 1.1 08/05/16 07:01 Sodium 137 mmol/L (132-148) 08/10/16 07:01 Potassium 4.7 mmol/L (3.6-5.2) 08/10/16 07:01 Chloride 100 mmol/L (98-107) 08/10/16 07:01 Carbon Dioxide 22 mmol/L (22-30) 08/10/16 07:01 Anion Gap 19 (10-20) 08/10/16 07:01 BUN 36 mg/dL (9-20) H 08/10/16 07:01 Creatinine 2.3 MG/DL (0.8-1.5) H 08/10/16 07:01 Est GFR ( Amer) 35 08/10/16 07:01 Est GFR (Non-Af Amer) 29 08/10/16 07:01 POC Glucose (mg/dL) 96 mg/dL (65-110) 08/10/16 07:04 Random Glucose 97 mg/dL (75-110) 08/10/16 07:01 Hemoglobin A1c 6.0 % (4.2-6.5) 08/05/16 07:01 Uric Acid 7.5 mg/dL (3.5-8.5) 08/06/16 07:24 Calcium 8.7 mg/dl (8.6-10.4) 08/10/16 07:01 Total Bilirubin 0.6 mg/dL (0.2-1.3) 08/07/16 07:00 AST 19 U/L (17-59) 08/07/16 07:00 ALT 16 U/L (21-72) L D 08/07/16 07:00 Alkaline Phosphatase 67 U/L (38-126) 08/07/16 07:00 Total Protein 7.6 g/dL (6.3-8.3) 08/07/16 07:00 Albumin 4.0 g/dL (3.5-5.0) 08/07/16 07:00 Globulin 3.6 gm/dL (2.2-3.9) 08/07/16 07:00 Albumin/Globulin Ratio 1.1 (1.0-2.1) 08/07/16 07:00 Urine Color Carmen (YELLOW) 08/04/16 05:12 Urine Clarity Hazy (Clear) 08/04/16 05:12 Urine pH 6.0 (5.0-8.0) 08/04/16 05:12 Ur Specific [place] 1.015 (1.003-1.030) 08/04/16 05:12 Urine Protein 2+ mg/dL (NEGATIVE) H 08/04/16 05:12 Urine Glucose (UA) Normal mg/dL (Normal) 08/04/16 05:12 Urine Ketones Negative mg/dL (NEGATIVE) 08/04/16 05:12 Urine Blood 3+ (NEGATIVE) H 08/04/16 05:12 Urine Nitrate Negative (NEGATIVE) 08/04/16 05:12 Urine Bilirubin Negative (NEGATIVE) 08/04/16 05:12 Urine Urobilinogen Normal mg/dL (0.2-1.0) 08/04/16 05:12 Ur Leukocyte Esterase Neg Nita/uL (Negative) 08/04/16 05:12 Urine WBC (Auto) 4 /hpf (0-5) 08/04/16 05:12 Urine RBC (Auto) 3653 /hpf (0-3) H 08/04/16 05:12 Urine Bacteria Rare (<OCC) 08/04/16 05:12 Discharge Exam - Head Exam Head Exam: NORMAL INSPECTION Discharge Plan - Discharge Medications Prescriptions: oxyCODONE/Acetaminophen [Percocet 5/325 mg Tab] 1 tab PO QID PRN #12 tab PRN Reason: Pain Ondansetron ODT [Zofran ODT] 1 odt PO BID PRN #6 odt PRN Reason: Nausea/Vomiting - Follow Up Plan Condition: FAIR Disposition: HOME/ ROUTINE Referrals: Emmanuel Baldwin MD [Staff Provider] -
--- NOTE | 2016-08-10 12:47 | CP.PCM.PN ---
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 and pt on percocet for pain management will give rx for 5 days of percocet for pain and patient will f/u with Dr. Vaughan office Objective - Vital Signs/Intake and Output Vital Signs (last 24 hours): Temp Pulse Resp BP Pulse Ox 98.0 F 87 20 137/76 97 08/10/16 08:00 08/10/16 08:00 08/10/16 08:00 08/10/16 08:00 08/10/16 08:00 Intake and Output: 08/10/16 08/10/16 06:59 18:59 Intake Total 1340 Output Total 600 Balance 740 - Medications Medications: Current Medications Acetaminophen (Tylenol 325mg Tab) 650 mg PO Q6 PRN PRN Reason: Pain, severe (8-10) Last Admin: 08/09/16 11:08 Dose: 650 mg Albuterol/Ipratropium (Duoneb 3 Mg/0.5 Mg (3 Ml) Ud) 3 ml INH RQ6 [facility] Last Admin: 08/10/16 08:03 Dose: 3 ml Amlodipine Besylate (Norvasc) 5 mg PO DAILY [facility] Last Admin: 08/10/16 09:30 Dose: 5 mg Sodium Chloride (Sodium Chloride 0.9%) 1,000 mls @ 50 mls/hr IV .Q20H [facility] Last Admin: 08/09/16 21:50 Dose: 50 mls/hr Losartan Potassium (Cozaar) 50 mg PO DAILY [facility] Last Admin: 08/09/16 11:12 Dose: 50 mg Magnesium Hydroxide (Milk Of Magnesia) 30 ml PO DAILY [facility] Last Admin: 08/10/16 09:29 Dose: 30 ml Morphine Sulfate (Morphine) 2 mg IVP Q6 PRN PRN Reason: Pain, moderate (4-7) Last Admin: 08/08/16 03:36 Dose: 2 mg Oxycodone/Acetaminophen (Percocet 5/325 Mg Tab) 1 tab PO Q6H PRN PRN Reason: Pain, Mild (1-3) Stop: 08/11/16 14:05 Last Admin: 08/10/16 09:30 Dose: 1 tab Pantoprazole Sodium (Protonix Ec Tab) 40 mg PO DAILY [facility] Rosuvastatin Calcium (Crestor) 10 mg PO HS [facility] Last Admin: 08/09/16 21:50 Dose: 10 mg - Labs Labs: 08/10/16 07:01 08/10/16 07:01 PT 12.9 SECONDS (9.7-12.2) H 08/05/16 07:01 INR 1.1 08/05/16 07:01
[2016-08-11] MEDS ORDERED: Pantoprazole 40 mg EC Tab PO SCH (10:00)
== END 2016-08-10 14:45 | disposition home or self-care (01) | DRG 690 ==
LOC: C.ER 03:59 → C.9E 06:30 → C.3T 06:45
PROVIDERS: ADMIT Internal Medicine; ATTEND Internal Medicine
PROC: 0T778DZ Dilation of Left Ureter with Intraluminal Device, Via Natural or Artificial Opening Endoscopic (ICD-10-PCS; 2016-08-09)
PROC: 0TB48ZX Excision of Left Kidney Pelvis, Via Natural or Artificial Opening Endoscopic, Diagnostic (ICD-10-PCS; principal; 2016-08-09 07:30)
DX: N30.81 Other cystitis with hematuria (principal); I13.0 Hypertensive heart and chronic kidney disease with heart failure and stage 1 through stage 4 chronic kidney disease, or unspecified chronic kidney disease; I50.32 Chronic diastolic (congestive) heart failure; E11.22 Type 2 diabetes mellitus with diabetic chronic kidney disease; L03.119 Cellulitis of unspecified part of limb; I25.10 Atherosclerotic heart disease of native coronary artery without angina pectoris; E78.00 Pure hypercholesterolemia, unspecified; K21.9 Gastro-esophageal reflux disease without esophagitis; N18.9 Chronic kidney disease, unspecified; Z79.4 Long term (current) use of insulin; G47.30 Sleep apnea, unspecified; E78.5 Hyperlipidemia, unspecified; M25.579 Pain in unspecified ankle and joints of unspecified foot